=== PATIENT | female | born 1965 | race Two or more races ===

== ENCOUNTER 2022-05-06 00:08 | Emergency (ER) | payer MEDICAID, OTHER ==
[~2022-05-06] VITALS: Ht 170.2 cm; Wt 75.8 kg
[2022-05-06 01:03] LABS: Basophils # (auto) 0.1 10 ^3/uL (0-0.2); Basophils % (auto) 1.1 % (0.0-2.0); Eosinophils # (auto) 0.5 10 ^3/uL (0-0.8); Eosinophils % (auto) 7.7 % (0.0-7.0); Hematocrit 38.7 % (36.0-46.0); Hemoglobin 13.3 g/dL (12.2-16.2); Lymphocytes % (auto) 30.4 % (10.0-50.0); Mean Corpuscular Hemoglobin 31.3 pg (28.0-32.0); Mean Corpuscular Hgb Conc. 34.2 g/dL (32.0-36.0); Mean Corpuscular Volume 91.5 fL (80.0-100.0); Monocytes # (auto) 0.5 10 ^3/uL (0-1.3); Monocytes % (auto) 8.4 % (0.0-12.0); Neutrophils # (auto) 3.4 10 ^3/uL (1.6-8.6); Neutrophils % (auto) 52.4 % (37.0-80.0); Nucleated Red Blood Cells % 0.1 %; Red Blood Cells 4.23 10^6/uL (4.0-5.20); Red Cell Distribution Width 12.9 % (11.8-14.3); White Blood Cell 6.5 10^3/uL (4.4-10.8)
[2022-05-06 01:16] LABS: Albumin 3.5 g/dL (3.4-5.0); BUN/Creatinine Ratio 26.9; Calcium 8.5 mg/dL (8.5-10.1); Magnesium 1.8 mg/dL (1.6-2.6); Potassium 4.3 mmol/L (3.5-5.1)
[2022-05-06 01:18] LABS: Bilirubin, Total 0.4 mg/dL (0.2-1.0)
[2022-05-06 05:19] VITALS: BP 113/70
== END 2022-05-06 05:24 | disposition home or self-care (01) ==
LOC: ER 00:10
DX: I10 Essential (primary) hypertension (principal); E11.649 Type 2 diabetes mellitus with hypoglycemia without coma; E78.5 Hyperlipidemia, unspecified
CPT/HCPCS: 36415; 71046; 80053; 83735; 83880; 84484; 85025; 85379; 93005

== ENCOUNTER 2022-12-01 09:22 | Inpatient (IN) | payer MEDICAID ==
[~2022-12-01] VITALS: Ht 170.2 cm; Wt 77.0 kg
[2022-12-01 09:45] LABS: Basophils # (auto) 0 10 ^3/uL (0-0.2); Basophils % (auto) 0.8 % (0.0-2.0); Eosinophils # (auto) 0.2 10 ^3/uL (0-0.8); Eosinophils % (auto) 4.1 % (0.0-7.0); Hematocrit 40.4 % (36.0-46.0); Hemoglobin 13.5 g/dL (12.2-16.2); Lymphocytes # (auto) 1.4 10 ^3/uL (0.4-5.4); Lymphocytes % (auto) 25.1 % (10.0-50.0); Mean Corpuscular Hgb Conc. 33.5 g/dL (32.0-36.0); Mean Corpuscular Volume 92.6 fL (80.0-100.0); Monocytes # (auto) 0.6 10 ^3/uL (0-1.3); Monocytes % (auto) 9.9 % (0.0-12.0); Neutrophils # (auto) 3.4 10 ^3/uL (1.6-8.6); Neutrophils % (auto) 60.1 % (37.0-80.0); Nucleated Red Blood Cells % 0.1 %; Red Blood Cells 4.37 10^6/uL (4.0-5.20); White Blood Cell 5.7 10^3/uL (4.4-10.8)
[2022-12-01 10:15] LABS: Alanine Aminotransferase 30 U/L (7-40); Albumin 3.9 g/dL (3.2-4.8); Alkaline Phosphatase 88 U/L (46-116); Anion Gap 5 (5-15); Aspartate Aminotransferase 17 U/L (13-40); BUN/Creatinine Ratio 18.7 (10.0-20.0); Bilirubin, Total 0.7 mg/dL (0.2-1.0); Blood Urea Nitrogen 14 mg/dL (9-23); Calcium 9.2 mg/dL (8.7-10.4); Carbon Dioxide 30 mmol/L (20-30); Chloride 105 mmol/L (98-107); Glucose 265 mg/dL (74-106); Potassium 4.2 mmol/L (3.5-5.1); Sodium 140 mmol/L (136-145); Total Protein 6.7 g/dL (5.7-8.2)
[2022-12-01 10:23] LABS: Urine Bacteria NONE SEEN /hpf (None Seen); Urine Blood Negative /uL (Negative); Urine Clarity Clear (Clear); Urine Color Yellow (Yellow); Urine Protein, UAD Negative (Negative); Urine Specific Gravity 1.022 (1.001-1.035); Urine Urobilinogen Normal (Negative); Urine WBC 9 /hpf (0 - 5); Urine pH 6.5 (5.0-8.0)
[2022-12-01] MEDS ORDERED: ASPirin 325 MG TAB PO ONE (11:00)
[2022-12-01] MEDS ORDERED: NITROGLYCERIN 0.4 MG SL TAB SL ONE (11:00)
[2022-12-01] MEDS ORDERED: ONDANSETRON HCL 4 MG/2 ML VIAL IV ONE (11:00)
[2022-12-01] MEDS ORDERED: MORPHINE SULFATE 4 MG/ML SYR/VIAL IV ONE (11:00)
[2022-12-01 11:49] VITALS: PULSE 79; RESP 11; O2SAT 96
[2022-12-01] MEDS ORDERED: NITROGLYCERIN 0.4 MG SL TAB SL PRN (14:30)
[2022-12-01] MEDS ORDERED: DEXTROSE (50%) 50ML SYRG IV PRN (14:30)
[2022-12-01] MEDS ORDERED: MORPHINE SULFATE INJ 2 MG/ml SYRG IV PRN (14:30)
[2022-12-01] MEDS ORDERED: ACETAMINOPHEN 325 MG TAB PO PRN (14:30)
[2022-12-01] MEDS ORDERED: GLIP2.5T9 PO (14:33)
[2022-12-01] MEDS ORDERED: LISI2.5T47 PO (14:33)
[2022-12-01] MEDS ORDERED: SEMA2INJ3 SC (14:33)
[2022-12-01] MEDS ORDERED: GLUC-149 XX (14:33)
[2022-12-01] MEDS: SODIUM CHLORIDE 0.9% 1,000 ML IV SCH (14:50)
[2022-12-01] MEDS ORDERED: cefTRIAXone 1GM/50ML D5W 50 ML IV ONE (15:00)
[2022-12-01 15:05] LABS: Triglycerides 122 mg/dL (< 150)
[2022-12-01 15:06] LABS: LDL Cholesterol 83 mg/dL (< 100)
[2022-12-01 15:07] LABS: HDL Cholesterol 37 mg/dL (40-59)
[2022-12-01 15:08] LABS: Cholesterol 136 mg/dL (< 200)
[2022-12-01] MEDS: InsuLIN REG 1unit/0.01ml Soln (100units/ml) SC SCH ×2 (17:00→22:15)
[2022-12-01] MEDS: ACCU-CHEK COMFORT CURVE STRIP VI SCH ×2 (17:26→22:14)
[2022-12-01 19:44] VITALS: PULSE 80; RESP 15; O2SAT 95
[2022-12-01] MEDS: ATORVASTATIN 20 MG TAB PO SCH (22:14)
[2022-12-02] VITALS (7 sets, daily range): BP systolic 103–117; BP diastolic 59–61; PULSE 69–89; RESP 13–20; TEMP 98.2–98.6; O2SAT 94–100
[2022-12-02 06:30] LABS: Alanine Aminotransferase 28 U/L (7-40); Albumin 3.9 g/dL (3.2-4.8); Alkaline Phosphatase 89 U/L (46-116); Anion Gap 7 (5-15); Aspartate Aminotransferase 19 U/L (13-40); BUN/Creatinine Ratio 12.9 (10.0-20.0); Bilirubin, Total 0.7 mg/dL (0.2-1.0); Blood Urea Nitrogen 9 mg/dL (9-23); Calcium 8.9 mg/dL (8.7-10.4); Carbon Dioxide 25 mmol/L (20-30); Chloride 108 mmol/L (98-107); Glucose 118 mg/dL (74-106); Potassium 4.1 mmol/L (3.5-5.1); Sodium 140 mmol/L (136-145); Total Protein 6.8 g/dL (5.7-8.2)
[2022-12-02 06:35] LABS: Basophils # (auto) 0 10 ^3/uL (0-0.2); Basophils % (auto) 0.8 % (0.0-2.0); Eosinophils # (auto) 0.2 10 ^3/uL (0-0.8); Eosinophils % (auto) 4.5 % (0.0-7.0); Hemoglobin 13.3 g/dL (12.2-16.2); Lymphocytes # (auto) 1.4 10 ^3/uL (0.4-5.4); Lymphocytes % (auto) 30.2 % (10.0-50.0); Mean Corpuscular Hemoglobin 31.2 pg (28.0-32.0); Mean Corpuscular Hgb Conc. 34.1 g/dL (32.0-36.0); Mean Corpuscular Volume 91.7 fL (80.0-100.0); Monocytes # (auto) 0.5 10 ^3/uL (0-1.3); Monocytes % (auto) 10.7 % (0.0-12.0); Neutrophils # (auto) 2.6 10 ^3/uL (1.6-8.6); Neutrophils % (auto) 53.8 % (37.0-80.0); Nucleated Red Blood Cells % 0.1 %; Red Blood Cells 4.25 10^6/uL (4.0-5.20); White Blood Cell 4.8 10^3/uL (4.4-10.8)
[2022-12-02] MEDS: InsuLIN REG 1unit/0.01ml Soln (100units/ml) SC SCH ×4 (06:40→22:00)
[2022-12-02] MEDS: ACCU-CHEK COMFORT CURVE STRIP VI SCH ×4 (06:40→23:06)
[2022-12-02] MEDS: SODIUM CHLORIDE 0.9% 1,000 ML IV SCH (07:13)
[2022-12-02] MEDS: cefTRIAXone 1GM/50ML D5W 50 ML IV SCH (09:40)
[2022-12-02] MEDS: ASPirin 81 mg TAB PO SCH (09:42)
[2022-12-02] MEDS: LISINOPRIL 5 MG TAB PO SCH (09:42)
[2022-12-02] MEDS ORDERED: ENOXAPARIN SOD 40 MG/0.4 ML SYRINGE SC SCH (10:00)
[2022-12-02] MEDS ORDERED: LISI2.5T47 PO (14:51)
[2022-12-02] MEDS ORDERED: SEMA2INJ3 SC (14:51)
[2022-12-02] MEDS ORDERED: GLIP2.5T9 PO (14:51)
[2022-12-02] MEDS: ATORVASTATIN 20 MG TAB PO SCH (23:05)
[2022-12-03] VITALS (7 sets, daily range): BP systolic 101–113; BP diastolic 56–64; PULSE 64–76; RESP 16–18; TEMP 97.9–98.6; O2SAT 94–99
[2022-12-03] MEDS: ACCU-CHEK COMFORT CURVE STRIP VI SCH ×3 (06:58→17:00)
[2022-12-03] MEDS: InsuLIN REG 1unit/0.01ml Soln (100units/ml) SC SCH ×3 (06:58→17:00)
[2022-12-03] MEDS: cefTRIAXone 1GM/50ML D5W 50 ML IV SCH (10:32)
[2022-12-03] MEDS: LISINOPRIL 5 MG TAB PO SCH (10:37)
[2022-12-03] MEDS: ASPirin 81 mg TAB PO SCH (10:38)
[2022-12-03] MEDS ORDERED: CEFU500T43 PO (14:38)
== END 2022-12-03 21:00 | disposition home or self-care (01) | DRG 198 ==
LOC: ER 09:22 → TELE 14:29 → TELE-WESTW 12-02 08:48
PROVIDERS: ADMIT Nurse Practitioner Family; ATTEND Internal Medicine
DX: I25.10 Atherosclerotic heart disease of native coronary artery without angina pectoris (principal); E11.65 Type 2 diabetes mellitus with hyperglycemia; I10 Essential (primary) hypertension; N39.0 Urinary tract infection, site not specified; E66.9 Obesity, unspecified; Z68.26 Body mass index [BMI] 26.0-26.9, adult; E78.5 Hyperlipidemia, unspecified; Z79.899 Other long term (current) drug therapy; R00.2 Palpitations
CPT/HCPCS: 36415; 71045; 78452; 80053; 80061; 81001; 82962; 83036; 84443; 84484; 85025; 87086; 93005; 93017; 93306; G0378; J0696; J1815

== ENCOUNTER 2023-04-11 22:12 | Emergency (ER) | payer MEDICAID ==
[~2023-04-11] VITALS: Ht 167.6 cm; Wt 74.0 kg
[~2023-04-11 22:12] MED LIST: CEFU500T43 PO; GLIP2.5T9 PO; LISI2.5T47 PO; SEMA2INJ3 SC
[2023-04-11 22:51] LABS: Basophils # (auto) 0.1 10 ^3/uL (0-0.2); Basophils % (auto) 1.6 % (0.0-2.0); Eosinophils # (auto) 0.3 10 ^3/uL (0-0.8); Eosinophils % (auto) 4.7 % (0.0-7.0); Hematocrit 41.1 % (36.0-46.0); Hemoglobin 13.5 g/dL (12.2-16.2); Lymphocytes # (auto) 2.4 10 ^3/uL (0.4-5.4); Lymphocytes % (auto) 38.1 % (10.0-50.0); Mean Corpuscular Hemoglobin 30.6 pg (28.0-32.0); Mean Corpuscular Volume 92.7 fL (80.0-100.0); Monocytes # (auto) 0.5 10 ^3/uL (0-1.3); Monocytes % (auto) 8.2 % (0.0-12.0); Neutrophils # (auto) 2.9 10 ^3/uL (1.6-8.6); Neutrophils % (auto) 47.4 % (37.0-80.0); Nucleated Red Blood Cells % 0.1 %; Red Blood Cells 4.43 10^6/uL (4.0-5.20); Red Cell Distribution Width 13.1 % (11.8-14.3); White Blood Cell 6.2 10^3/uL (4.4-10.8)
[2023-04-11 22:55] LABS: Chloride 105 mmol/L (98-107); Potassium 3.8 mmol/L (3.5-5.1); Sodium 138 mmol/L (136-145)
[2023-04-11 22:56] LABS: Anion Gap 6 (5-15); Calcium 9.4 mg/dL (8.5-10.1); Carbon Dioxide 27 mmol/L (20-30)
[2023-04-11 22:58] LABS: Urine Bacteria NONE SEEN /hpf (None Seen); Urine Blood Negative /uL (Negative); Urine Clarity Clear (Clear); Urine Protein, UAD Negative (Negative); Urine Specific Gravity 1.005 (1.001-1.035); Urine Urobilinogen Normal (Negative); Urine WBC <1 /hpf (0 - 5); Urine pH 6.5 (5.0-8.0)
[2023-04-11 23:01] LABS: BUN/Creatinine Ratio 21.8 (10.0-20.0); Blood Urea Nitrogen 17 mg/dL (9-23); Glucose 147 mg/dL (74-106)
[2023-04-11 23:08] LABS: Urine Color STRAW (Yellow)
[2023-04-12 00:01] VITALS: BP 124/54; PULSE 71; RESP 18; O2SAT 100
== END 2023-04-12 00:04 | disposition home or self-care (01) ==
LOC: ER 22:12
DX: R07.89 Other chest pain (principal); I10 Essential (primary) hypertension; E11.9 Type 2 diabetes mellitus without complications; E78.5 Hyperlipidemia, unspecified
CPT/HCPCS: 36415; 80048; 81001; 84484; 85025; 93005

== ENCOUNTER 2023-08-15 01:04 | Emergency (ER) | payer MEDICAID ==
[~2023-08-15] VITALS: Ht 170.2 cm; Wt 76.0 kg
[2023-08-15 01:17] VITALS: BP 157/86; RESP 20; O2SAT 100
[2023-08-15 01:39] LABS: Basophils # (auto) 0.1 10 ^3/uL (0-0.2); Eosinophils # (auto) 0.5 10 ^3/uL (0-0.8); Eosinophils % (auto) 7.4 % (0.0-7.0); Hematocrit 38.8 % (36.0-46.0); Hemoglobin 12.9 g/dL (12.2-16.2); Lymphocytes # (auto) 2.9 10 ^3/uL (0.4-5.4); Lymphocytes % (auto) 43.8 % (10.0-50.0); Mean Corpuscular Hemoglobin 31.1 pg (28.0-32.0); Mean Corpuscular Hgb Conc. 33.2 g/dL (32.0-36.0); Mean Corpuscular Volume 93.6 fL (80.0-100.0); Monocytes # (auto) 0.7 10 ^3/uL (0-1.3); Monocytes % (auto) 10.9 % (0.0-12.0); Neutrophils # (auto) 2.4 10 ^3/uL (1.6-8.6); Neutrophils % (auto) 36.9 % (37.0-80.0); Nucleated Red Blood Cells % 0.1 %; Red Blood Cells 4.15 10^6/uL (4.0-5.20); White Blood Cell 6.6 10^3/uL (4.4-10.8)
[2023-08-15 01:49] LABS: Urine Bacteria None Seen /hpf (None Seen)
[2023-08-15 01:58] LABS: Urine Blood Negative /uL (Negative); Urine Clarity Clear (Clear); Urine Protein, UAD Negative (Negative); Urine Specific Gravity 1.004 (1.001-1.035); Urine Urobilinogen Normal (Negative); Urine WBC <1 /hpf (0 - 5); Urine pH 6.5 (5.0-9.0)
[2023-08-15 02:07] LABS: Alanine Aminotransferase 32 U/L (7-40); Albumin 4.2 g/dL (3.2-4.8); Alkaline Phosphatase 93 U/L (46-116); Anion Gap 7 (5-15); Aspartate Aminotransferase 19 U/L (13-40); BUN/Creatinine Ratio 15.2 (10.0-20.0); Bilirubin, Total 0.4 mg/dL (0.2-1.0); Blood Urea Nitrogen 10 mg/dL (9-23); Calcium 9.6 mg/dL (8.7-10.4); Carbon Dioxide 26 mmol/L (20-30); Chloride 106 mmol/L (98-107); Glucose 160 mg/dL (74-106); Potassium 4.6 mmol/L (3.5-5.1); Sodium 139 mmol/L (136-145); Total Protein 7.3 g/dL (5.7-8.2)
[2023-08-15 02:32] VITALS: PULSE 75
[2023-08-15 02:45] LABS: Urine Color Straw (Yellow)
== END 2023-08-15 04:02 | disposition left against medical advice (07) ==
LOC: ER 01:04
DX: R07.9 Chest pain, unspecified (principal); E11.9 Type 2 diabetes mellitus without complications; E78.5 Hyperlipidemia, unspecified; I10 Essential (primary) hypertension
CPT/HCPCS: 36415; 70450; 71045; 80053; 81001; 84484; 85025; 93005

== ENCOUNTER 2023-09-29 23:07 | Emergency (ER) | payer MEDICAID ==
[~2023-09-29] VITALS: Ht 170.2 cm; Wt 75.5 kg
[2023-09-29 23:17] VITALS: BP 143/67
[2023-09-29 23:36] LABS: Basophils # (auto) 0.1 10 ^3/uL (0-0.2); Basophils % (auto) 0.9 % (0.0-2.0); Eosinophils # (auto) 0.4 10 ^3/uL (0-0.8); Eosinophils % (auto) 5.4 % (0.0-7.0); Hematocrit 36.7 % (36.0-46.0); Hemoglobin 12.6 g/dL (12.2-16.2); Lymphocytes # (auto) 2.9 10 ^3/uL (0.4-5.4); Lymphocytes % (auto) 42.3 % (10.0-50.0); Mean Corpuscular Hemoglobin 31.7 pg (28.0-32.0); Mean Corpuscular Hgb Conc. 34.2 g/dL (32.0-36.0); Mean Corpuscular Volume 92.7 fL (80.0-100.0); Monocytes # (auto) 0.6 10 ^3/uL (0-1.3); Monocytes % (auto) 9.1 % (0.0-12.0); Neutrophils # (auto) 2.9 10 ^3/uL (1.6-8.6); Neutrophils % (auto) 42.3 % (37.0-80.0); Nucleated Red Blood Cells % 0.1 %; Red Blood Cells 3.96 10^6/uL (4.0-5.20); White Blood Cell 6.8 10^3/uL (4.4-10.8)
[2023-09-29 23:54] LABS: Alanine Aminotransferase 22 U/L (7-40); Alkaline Phosphatase 91 U/L (46-116); Anion Gap 2 (5-15); Aspartate Aminotransferase 15 U/L (13-40); BUN/Creatinine Ratio 15.4 (10.0-20.0); Bilirubin, Total 0.7 mg/dL (0.2-1.0); Blood Urea Nitrogen 10 mg/dL (9-23); Calcium 9.4 mg/dL (8.7-10.4); Carbon Dioxide 30 mmol/L (20-30); Chloride 103 mmol/L (98-107); Glucose 137 mg/dL (74-106); Magnesium 1.9 mg/dL (1.6-2.6); Potassium 4.5 mmol/L (3.5-5.1); Sodium 135 mmol/L (136-145)
[2023-09-29 23:55] LABS: INR 1.06 (0.9-1.15); Partial Thromboplastin Time 27.9 SEC (24.5-34.5); Prothrombin Time 11.2 sec (9.3-11.8)
[2023-09-30 03:51] VITALS: PULSE 64; RESP 14; TEMP 98.2; O2SAT 98
[2023-09-30] MEDS ORDERED: IOHEXOL 350 MG/ML 100ML IJ ONE (05:05)
[2023-09-30] MEDS ORDERED: HYDR-4902 PO (05:36)
[2023-09-30] MEDS: ASPirin-EC 325mg tab PO ONE (05:50)
== END 2023-09-30 05:55 | disposition home or self-care (01) ==
LOC: ER 23:07
DX: R07.2 Precordial pain (principal); K80.20 Calculus of gallbladder without cholecystitis without obstruction; E11.9 Type 2 diabetes mellitus without complications; E78.5 Hyperlipidemia, unspecified; I10 Essential (primary) hypertension; F41.9 Anxiety disorder, unspecified
CPT/HCPCS: 36415; 71045; 71275; 80053; 83735; 83880; 84484; 85025; 85610; 85730; 93005; 99285; Q9967; 99291

== ENCOUNTER 2024-09-24 01:41 | Inpatient (IN) | payer MEDICAID ==
[~2024-09-24] VITALS: Ht 170.2 cm; Wt 66.0 kg
[~2024-09-24 01:41] MED LIST changes: +HYDR-4902 PO
--- NOTE | 2024-09-24 02:12 | ED.PDOC ---
HPI Comments 59 year old female with a Hx of Anxiety, HTN, DM, and High Lipids presents to the ED for the c/c of Elevated Blood pressure w/ associated Chest pressure, SOB, Dizziness, and N/V. Pt states that she took an at home blood pressure and it read 195/95 prompting her visit to the ED. Pt BP is noted to have improved to 147/85 upon triage assessment. Pt denies any ABD Pain, Radiation, and is A&Ox4. No other associated symptoms, modifiers, recent injuries or sick contacts present at this time. Time Seen by MD: 02:07 Primary Care Provider: Unknown Reviewed Notes: Nurses Notes, Medications, Allergies Allergies: Coded Allergies: No Known Drug Allergy (Verified Allergy, Unknown, 12/01/22) Home Meds Active Scripts Hydrocodone-Acetaminophen (Hydrocodone Bitartrate/AC 5-325 mg) 1 Tab Tab, 1 TAB PO QIDPRN, #20 TAB Prov:AD ARROYO MD 09/30/23 Cefuroxime Axetil (Cefuroxime Axetil) 500 Mg Tab, 500 MG PO BID PRN for 5 Days, #10 TAB Prov:CHRISTOPH TOBIAS MD 12/03/22 Reported Medications Semaglutide (Ozempic) 2 Mg/3 Ml Inj, 0.25 MG SC QWEEKLY, INJ 12/02/22 Lisinopril (Lisinopril) 2.5 Mg Tab, 2.5 MG PO DAILY for 30 Days, MG 12/02/22 Glipizide (Glipizide Er) 2.5 Mg Tab, 2.5 MG PO BID, TAB 12/02/22 Information Source: Patient Mode of Arrival: Ambulatory Severity: Moderate Timing: Hours Duration: Since onset, Hours Prehospital treatment: None Location: Chest (L) Radiation: No Radiation Quality: Pressure Onset: At Rest Cardiac Risk Factors: HTN, Diabetes PE Risk Factors: None History of: None Modifying Factors: Exertion, Movement Associated Signs and Symptoms: SOB, N/V Past Medical History PAST MEDICAL HISTORY: Anxiety, DM, High Lipids, HTN Surgical History: Denies all surgeries GREEN HIDE INSPECTOR History: Denies all GREEN HIDE INSPECTOR Hx Family History Family History: Unknown Social History Smoker: Non-Smoker Alcohol: Denies ETOH Use Drugs: Denies Drug Use Lives In: Home All Other Systems: Reviewed and Negative (comprehensive exam was negavtive accept what is in the HPI) Physical Exam General Appearance: Mild Distress, Obese HEENT: Other (Pupils and face symmetric. Moist mucous membranes.) Neck: Full Range of Motion, Normal Inspection Respiratory: Chest Non-Tender, Lungs Clear, No Accessory Muscle Use, No Respiratory Distress, Normal Breath Sounds Cardiovascular: No Edema, No JVD, Regular Rate/Rhythm Breast Exam: Deferred Gastrointestinal: Non Tender, Soft Genitalia: Deferred Pelvic: Deferred Rectal: Deferred Extremities: Normal inspection, Normal range of motion, Non-tender, No pedal edema Neurologic: Alert (Oriented x4), Normal Affect, Normal Mood, Other (Ambulatory) Cerebellar Function: NOT DONE Reflexes: NOT DONE Skin: Dry, Normal Color, Warm Lymphatic: NOT DONE EKG EKG : Comments Sinus rhythm, rate 74, normal intervals, normal axis, normal QRS, no ST/T ch anges. Was a procedure done? Was a procedure done?: No CP Differential Dx Differential Diagnosis: Angina, Anxiety / Panic Attack, Electrolyte Disorder, Heart Failure, AL, Pulmonary Embolus Differential Diagnosis: HTN Essential, HTN Accelerated Differential Diagnosis: Angina, Aortic dissection, Chest Wall Pain, Costochondritis, Esophageal reflux/spasm, Gastritis, Pericarditis, Pneumonia, Pneumothorax X-Ray, Labs, Meds, VS Vital Signs Date Time Temp Pulse Resp B/P (MAP) Pulse Ox O2 Delivery O2 Flow Rate FiO2 09/24/24 02:05 74 09/24/24 02:00 98.2 86 16 147/85 (105) 100 98.2 Lab Test 09/24/24 02:58 09/24/24 02:10 09/24/24 02:00 Range/Units Troponin I High Sensitivity Pending < 3 L </=34 ng/L White Blood Count 5.4 4.4-10.8 10^3/uL Red Blood Count 4.37 4.0-5.20 10^6/uL Hemoglobin 13.5 12.2-16.2 g/dL Hematocrit 40.5 36.0-46.0 % Mean Corpuscular Volume 92.7 80.0-100.0 fL Mean Corpuscular Hemoglobin 30.9 28.0-32.0 pg Mean Corpuscular Hemoglobin Concent 33.4 32.0-36.0 g/dL Red Cell Distribution Width 12.8 11.8-14.3 % Platelet Count 229 140-450 10^3/uL Mean Platelet Volume 7.9 6.9-10.8 fL Neutrophils (%) (Auto) 36.4 L 37.0-80.0 % Lymphocytes (%) (Auto) 46.8 10.0-50.0 % Monocytes (%) (Auto) 10.0 0.0-12.0 % Eosinophils (%) (Auto) 5.9 0.0-7.0 % Basophils (%) (Auto) 0.9 0.0-2.0 % Neutrophils # (Auto) 1.9 1.6-8.6 10 ^3/uL Lymphocytes # (Auto) 2.5 0.4-5.4 10 ^3/uL Monocytes # (Auto) 0.5 0-1.3 10 ^3/uL Eosinophils # (Auto) 0.3 0-0.8 10 ^3/uL Basophils # (Auto) 0 0-0.2 10 ^3/uL Nucleated Red Blood Cells 0.1 % Sodium Level 134 L 136-145 mmol/L Potassium Level 4.4 3.5-5.1 mmol/L Chloride Level 101 98-107 mmol/L Carbon Dioxide Level 27 20-31 mmol/L Anion Gap 6 5-15 Blood Urea Nitrogen 9 9-23 mg/dL Creatinine 0.73 0.550-1.02 mg/dL Glomerular Filtration Rate Calc 96 >90 mL/min BUN/Creatinine Ratio 12.3 10.0-20.0 Serum Glucose 145 H 74-106 mg/dL Calcium Level 9.3 8.7-10.4 mg/dL B-Type Natriuretic Peptide 38.26 0-100 pg/mL Urine Color Colorless Yellow Urine Clarity Clear Clear Urine pH 6.5 5.0-9.0 Urine Specific [place] 1.008 1.001-1.035 Urine Protein Negative Negative Urine Ketones Negative Negative Urine Blood Negative Negative /uL Urine Nitrite Negative Negative Urine Bilirubin Negative Negative Urine Urobilinogen Normal Negative mg/dL Urine Leukocyte Esterase Negative Negative /uL Urine RBC None seen 0 - 4 /hpf Urine Microscopic WBC < 1 0-5 /HPF Urine Squamous Epithelial Cells Few <5 /hpf Urine Bacteria None seen None Seen /hpf Urine Glucose Normal Normal mg/dL PROCEDURE(s): CXRP - CHEST PORTABLE REASON: cp ORDER NUMBER(s): [id number], ACCESSION NUMBER(s): [id number] CHEST RADIOGRAPH Indication: cp Technique: Single frontal view of the chest was obtained COMPARISON: XY CHEST PORTABLE on DOS: 09/29/23, XY CHEST PORTABLE on DOS: 08/15/23, XY CHEST PORTABLE on DOS: 12/01/22 FINDINGS: Lines and Tubes: None Lungs: Clear Pleura: No effusion. No pneumothorax. Cardiomediastinal contours: Unremarkable Bones: Unremarkable IMPRESSION: 1. No acute disease. X-Ray, Labs, Meds, VS Comment 59-year-old female with a history of hypertension, diabetes and dyslipidemia complaining of chest pressure, elevated blood pressure, associated with lightheadedness, nausea and vomiting Vitals remarkable for BP 147/85 Exam unremarkable Rhythm strip independently interpreted by me: Sinus rhythm, rate 74, no ectopy. Chest x-ray unremarkable CBC unremarkable, BMP remarkable for sodium 134, BNP and troponin negative, UA unremarkable Patient treated with the following in the ED: Aspirin 325 mg p.o., nitro bid 1/2 inch to chest wall On re-evaluation, patient states chest pressure has improved. Vitals were stable. Plan is to admit the patient for Cardiology evaluation Time of 1ST Reevaluation: 02:38 Reevaluation 1ST: Unchanged Patient Education/Counseling: Diagnosis, Treatment, Need For Follow Up Family Education/Counseling: No Family Present SEPSIS Sepsis Screen Physician Orders Chest Portable (09/24/24 02:07) Electrocardigram (09/24/24 02:07) Troponin-I Hs (09/24/24 03:07) Troponin-I Hs (09/24/24 05:07) Vital Signs Date Time Temp Pulse Resp B/P (MAP) Pulse Ox O2 Delivery O2 Flow Rate FiO2 09/24/24 02:05 74 09/24/24 02:00 98.2 86 16 147/85 (105) 100 98.2 Laboratory Tests Test 09/24/24 02:10 White Blood Count 5.4 10^3/uL (4.4-10.8) Departure 1 Departure Time of Disposition: 04:01 Impression: Primary Impression: Hypertensive urgency Additional Impression: Chest pain with high risk for cardiac etiology Disposition: ADMITTED INPATIENT Admit to: Tele Condition: Guarded Critical Care Note Critical Care Time?: No Stability Stability form required: No Heart Score Heart Score: Heart Score Response (Comments) Value History Highly Suspicious 2 EKG Normal 0 Age 45-64 1 Risk Factors >3 or Hx ASHD 2 Troponin Normal limit 0 Total 5 I personally scribed for ADRIAN MASCORRO MD ([email or web address]) on 09/24/24 at 02:12. Electronically submitted by Ferny Ramires ([email or web address]). ADRIAN MASCORRO MD Sep 24, 2024 02:12
[2024-09-24 02:23] LABS: Hematocrit 40.5 % (36.0-46.0); Hemoglobin 13.5 g/dL (12.2-16.2); Mean Corpuscular Hemoglobin 30.9 pg (28.0-32.0); Mean Corpuscular Volume 92.7 fL (80.0-100.0); Nucleated Red Blood Cells % 0.1 %
[2024-09-24 02:31] LABS: Chloride 101 mmol/L (98-107); Potassium 4.4 mmol/L (3.5-5.1)
[2024-09-24 02:32] LABS: Anion Gap 6 (5-15); Calcium 9.3 mg/dL (8.7-10.4); Carbon Dioxide 27 mmol/L (20-31)
[2024-09-24 02:37] LABS: BUN/Creatinine Ratio 12.3 (10.0-20.0)
--- NOTE | 2024-09-24 02:58 | DVH ---
CHEST RADIOGRAPH Indication: cp Technique: Single frontal view of the chest was obtained COMPARISON: XY CHEST PORTABLE on DOS: 09/29/23, XY CHEST PORTABLE on DOS: 08/15/23, XY CHEST PORTABLE on DOS: 12/01/22 FINDINGS: Lines and Tubes: None Lungs: Clear Pleura: No effusion. No pneumothorax. Cardiomediastinal contours: Unremarkable Bones: Unremarkable IMPRESSION: 1. No acute disease.
[2024-09-24 03:12] LABS: Blood Urea Nitrogen 9 mg/dL (9-23); Glucose 145 mg/dL (74-106); Sodium 134 mmol/L (136-145)
[2024-09-24 03:16] LABS: Urine Protein, UAD Negative (Negative)
[2024-09-24] MEDS: ACETAMINOPHEN 500 MG TAB or CAP PO ONE (04:13)
[2024-09-24] MEDS: NITROGLYCERIN 2% OINT 1GM PKG TD ONE (04:23)
[2024-09-24 06:45] VITALS: PULSE 65; RESP 16; O2SAT 99
[2024-09-24] MEDS ORDERED: MORPHINE SULFATE INJ 2 MG/ml SYRG IV PRN (07:15)
[2024-09-24] MEDS ORDERED: NITROGLYCERIN 0.4 MG SL TAB SL PRN ×2 (07:15)
[2024-09-24] MEDS ORDERED: ONDANSETRON HCL 4 MG/2 ML VIAL IV PRN (07:15)
[2024-09-24] MEDS ORDERED: MORPHINE SULFATE 4 MG/ML SYR/VIAL IV PRN (07:15)
[2024-09-24] MEDS ORDERED: ROSU20TA56 PO (07:18)
--- NOTE | 2024-09-24 07:18 | DVHHP2 ---
History of Present Illness Reason for Visit: Chest pain History of Present Illness Meyerskaylyn ReevesAVERY is a 59-year-old female with past medical history of hypertension, diabetes, hyperlipidemia, and anxiety who presents to the ED with chest pain that started today along with high blood pressure. Patient reports that the pain is 3/10 pressure-like and constant. She also states it is worse when breathing in. Patient reports that standing up makes the pain better. She states that sitting down makes it worse. Patient denies any shortness of breath, recent trauma or injury, recent sick contacts, recent ingestion of spoiled food, recent travels, abdominal pain, nausea, vomiting, diarrhea, urinary symptoms, lightheadedness, weakness, or dizziness. Patient reports that she is compliant with her medications and walks ind ependently without any DMEs. Cardiovascular: HTN, hyperipidemia Psych: Anxiety Endocrine: Diabetes Past Surgical History: None Family History: DM, Other (Mom and dad with diabetes) Smoke: No ALCOHOL: none Drugs: None Lives: with Family Domestic Violence: Neg Review of Systems Cardiovascular: Chest Pain Allergies: Coded Allergies: No Known Drug Allergy (Verified Allergy, Unknown, 12/01/22) Medications Current Medications Medications Dose Ordered Sig/Lilian Route Start Time Stop Time Status Last Admin Dose Admin Aspirin 81 mg DAILY PO 09/24/24 10:00 UNV Atorvastatin Calcium 40 mg HS PO 09/24/24 22:00 UNV Morphine Sulfate 2 mg Q30MP PRN IV 09/24/24 07:15 UNV Nitroglycerin 0.4 mg Q5MINP PRN SL 09/24/24 07:15 UNV Ondansetron HCl 4 mg Q4HP PRN IV 09/24/24 07:15 UNV Nitroglycerin 0.4 mg Q5MINP PRN SL 09/24/24 07:15 UNV Morphine Sulfate 2 mg Q30M PRN IV 09/24/24 07:15 UNV Exam Vital Signs Vital Signs Date Time Temp Pulse Resp B/P (MAP) Pulse Ox O2 Delivery O2 Flow Rate FiO2 09/24/24 06:45 65 16 99 Room Air* 0 21 09/24/24 06:30 98.4 133/68 (89) 98.4 General Appearance: Alert, Oriented X3, Cooperative, No acute distress HEENT: Atraumatic, PERRLA, EOMI, Mucous membr. moist/pink Respiratory: Clear to auscultation, Normal air movement Cardiovascular: Regular rate, Normal S1, Normal S2, No murmurs Abdominal: Normal bowel sounds, Soft Extremities: No clubbing, No cyanosis, No edema, Normal pulses, No tenderness/swelling Skin: No significant lesion Neuro: Normal speech, Strength at 5/5 X4 ext, Normal tone, Sensation intact Psych/Mental Status: Mental status NL, Mood NL Labs/Xrays Labs Test 09/24/24 05:27 09/24/24 02:10 09/24/24 02:00 Range/Units Troponin I High Sensitivity < 3 L </=34 ng/L White Blood Count 5.4 4.4-10.8 10^3/uL Red Blood Count 4.37 4.0-5.20 10^6/uL Hemoglobin 13.5 12.2-16.2 g/dL Hematocrit 40.5 36.0-46.0 % Mean Corpuscular Volume 92.7 80.0-100.0 fL Mean Corpuscular Hemoglobin 30.9 28.0-32.0 pg Mean Corpuscular Hemoglobin Concent 33.4 32.0-36.0 g/dL Red Cell Distribution Width 12.8 11.8-14.3 % Platelet Count 229 140-450 10^3/uL Mean Platelet Volume 7.9 6.9-10.8 fL Neutrophils (%) (Auto) 36.4 L 37.0-80.0 % Lymphocytes (%) (Auto) 46.8 10.0-50.0 % Monocytes (%) (Auto) 10.0 0.0-12.0 % Eosinophils (%) (Auto) 5.9 0.0-7.0 % Basophils (%) (Auto) 0.9 0.0-2.0 % Neutrophils # (Auto) 1.9 1.6-8.6 10 ^3/uL Lymphocytes # (Auto) 2.5 0.4-5.4 10 ^3/uL Monocytes # (Auto) 0.5 0-1.3 10 ^3/uL Eosinophils # (Auto) 0.3 0-0.8 10 ^3/uL Basophils # (Auto) 0 0-0.2 10 ^3/uL Nucleated Red Blood Cells 0.1 % Sodium Level 134 L 136-145 mmol/L Potassium Level 4.4 3.5-5.1 mmol/L Chloride Level 101 98-107 mmol/L Carbon Dioxide Level 27 20-31 mmol/L Anion Gap 6 5-15 Blood Urea Nitrogen 9 9-23 mg/dL Creatinine 0.73 0.550-1.02 mg/dL Glomerular Filtration Rate Calc 96 >90 mL/min BUN/Creatinine Ratio 12.3 10.0-20.0 Serum Glucose 145 H 74-106 mg/dL Calcium Level 9.3 8.7-10.4 mg/dL B-Type Natriuretic Peptide 38.26 0-100 pg/mL Urine Color Colorless Yellow Urine Clarity Clear Clear Urine pH 6.5 5.0-9.0 Urine Specific [place] 1.008 1.001-1.035 Urine Protein Negative Negative Urine Ketones Negative Negative Urine Blood Negative Negative /uL Urine Nitrite Negative Negative Urine Bilirubin Negative Negative Urine Urobilinogen Normal Negative mg/dL Urine Leukocyte Esterase Negative Negative /uL Urine RBC None seen 0 - 4 /hpf Urine Microscopic WBC < 1 0-5 /HPF Urine Squamous Epithelial Cells Few <5 /hpf Urine Bacteria None seen None Seen /hpf Urine Glucose Normal Normal mg/dL CHEST RADIOGRAPH Indication: cp Technique: Single frontal view of the chest was obtained COMPARISON: XY CHEST PORTABLE on DOS: 09/29/23, XY CHEST PORTABLE on DOS: 08/15/23, XY CHEST PORTABLE on DOS: 12/01/22 FINDINGS: Lines and Tubes: None Lungs: Clear Pleura: No effusion. No pneumothorax. Cardiomediastinal contours: Unremarkable Bones: Unremarkable IMPRESSION: 1. No acute disease. SEPSIS Sepsis Screen Date sepsis recognized/suspect: Sep 24, 2024 Time Sepsis recognized/suspect: 647 Recent Procedure: No On Antibiotic Therapy: No Respiratory Rate >20: No Heart Rate >90: No Temp<36 C (96.8 F) or >38.3 C: No SBP <90 or MAP <65 mmHG: No New Acute Mental Status Change: No Is the patient on CPAP, BIPAP,: No Physician Orders Chest Portable (09/24/24 02:07) Electrocardigram (09/24/24 02:07) Admit (09/24/24 07:14) Code Status (09/24/24 07:14) Vital Signs .PER UNIT PROTOCOL (09/24/24 07:14) Economic Specialist (09/24/24 07:14) Aspirin Tablet (09/24/24 10:00) Morphine Sulfate Injection (09/24/24 07:15) Complete Blood Count (09/25/24 04:00) Basic Metabolic Panel (09/25/24 04:00) Magnesium (09/25/24 04:00) Lipid Panel (09/25/24 04:00) Echo 2d Mode Cardiac Dop (09/24/24 07:14) Nitroglycerin Sublingual (Ntrostat Subli (09/24/24 07:15) Ondansetron Hcl (Zofran) (09/24/24 07:15) Electrocardigram (09/25/24 04:00) Troponin-I Hs (09/24/24 07:14) Cardiac Rehabilitation - Outpa (09/24/24 ) Nitroglycerin Sublingual (Ntrostat Subli (09/24/24 07:15) Morphine Sulfate Injection (09/24/24 07:15) Stat Ekg For Chest Pain (09/24/24 07:14) Notify Md Of Changes From Base (09/24/24 07:14) Cephalometric Technician For 24 Hours (09/24/24 07:14) Emergency Dysrhythmia Protocol (09/24/24 07:14) Rhythm Strips Once Every Shift (09/24/24 07:14) Oxygen By Nasal Cannula (09/24/24 07:14) Atorvastatin (Lipitor) (09/24/24 22:00) Free T4 (Free Thyroxine) (09/24/24 07:16) Thyroid Stimulating Hormone (09/24/24 07:16) Hemoglobin A1c (09/24/24 07:16) Drug Screen (09/24/24 07:16) Cardiac Diet-2gna,Lofat,Lochol (09/24/24 Breakfast) Glucose Blood (Accu-Chek Comfort Curve T (09/24/24 11:30) Mild Sliding Scale (09/24/24 11:30) Dextrose 50% Syringe (09/24/24 07:30) (Nf) Lisinopril (09/24/24 10:00) Vital Signs Date Time Temp Pulse Resp B/P (MAP) Pulse Ox O2 Delivery O2 Flow Rate FiO2 09/24/24 06:45 65 16 99 Room Air* 0 21 09/24/24 06:30 98.4 65 16 133/68 (89) 99 98.4 09/24/24 04:30 98.4 65 16 140/79 (99) 99 98.4 09/24/24 02:05 74 09/24/24 02:00 98.2 86 16 147/85 (105) 100 98.2 Laboratory Tests Test 09/24/24 02:10 White Blood Count 5.4 10^3/uL (4.4-10.8) Medications Medications Dose Ordered Sig/Lilian Route Start Time Stop Time Status Last Admin Dose Admin Acetaminophen 1,000 mg ONCE ONCE PO 09/24/24 04:15 09/24/24 04:16 DC 09/24/24 04:13 1,000 MG Aspirin 325 mg ONCE ONCE PO 09/24/24 02:15 09/24/24 02:16 DC 09/24/24 04:05 325 MG Assessment/Plan Assessment/Plan Assessment Chest pain rule out ACS Hyponatremia Hypertension History of diabetes History of hyperlipidemia History of anxiety Plan Admit to tele Antiemetics Pain management Chest x-ray noted BNP noted Aspirin + statin Hemoglobin A1c ISS and Accu-Cheks Echo ordered Last echo on 12/01/2022 EF 60% ACS workup Diet Home medications reconciled DVT prophylaxis-not indicated patient ambulating PUD prophylaxis-not indicated no history of GERD or GI bleed Discussed plan of care with patient and nurse [id number] Preventive counseling healthy eating habits, physical activity, and regular checkups Plan discussed with: Patient My Orders Orders - PAULETTE JOY LINING CASER Procedure Category Date Status Time Admit ADMIT 09/24/24 Transmitted 07:14 Code Status CODE 09/24/24 Transmitted 07:14 Vital Signs CHANDA 09/24/24 In Process 07:14 Economic Specialist CHANDA 09/24/24 In Process 07:14 Aspirin Tablet PHA 09/24/24 Logged 10:00 Morphine Sulfate PHA 09/24/24 Logged Injection 07:15 Complete Blood Count LAB 09/25/24 Verified 04:00 Basic Metabolic Panel LAB 09/25/24 Verified 04:00 Magnesium LAB 09/25/24 Verified 04:00 Lipid Panel LAB 09/25/24 Verified 04:00 Echo 2d Mode Cardiac US 09/24/24 Logged DOP 07:14 Nitroglycerin PHA 09/24/24 Logged Sublingual (Ntrostat 07:15 Ondansetron Hcl PHA 09/24/24 Logged (Zofran) 07:15 Electrocardigram EKG 09/25/24 Logged 04:00 Troponin-I Hs LAB 09/24/24 Logged 07:14 Cardiac CHANDA 09/24/24 In Process Rehabilitation - Outpa Nitroglycerin PHA 09/24/24 Logged Sublingual (Ntrostat 07:15 Morphine Sulfate PHA 09/24/24 Logged Injection 07:15 Stat Ekg For Chest CHANDA 09/24/24 In Process Pain 07:14 Notify Of Changes [facility] 09/24/24 In Process From Base 07:14 Cephalometric Technician For CHANDA 09/24/24 In Process 24 Hours 07:14 Emergency Dysrhythmia [facility] 09/24/24 In Process Protocol 07:14 Rhythm Strips Once CHANDA 09/24/24 In Process Every Shift 07:14 Oxygen By Nasal RT 09/24/24 Transmitted Cannula 07:14 Atorvastatin (Lipitor) PHA 09/24/24 Logged 22:00 Free T4 (Free LAB 09/24/24 Transmitted Thyroxine) 07:16 Thyroid Stimulating LAB 09/24/24 Transmitted Hormone 07:16 Hemoglobin A1c LAB 09/24/24 Transmitted 07:16 Drug Screen LAB 09/24/24 Transmitted 07:16 Cardiac DIET 09/24/24 Transmitted Diet-2gna,Lofat,Lochol Breakfast Glucose Blood PHA 09/24/24 Transmitted (Accu-Chek Comfort 11:30 Mild Sliding Scale PHA 09/24/24 Transmitted 11:30 Dextrose 50% Syringe PHA 09/24/24 Transmitted 07:30 (Nf) Lisinopril PHA 09/24/24 Transmitted 10:00 Date of Service: Sep 24, 2024 Billing Provider: PAULETTE JOY Common Visit Codes: [id number] INP/OBS CARE (HIGH) Secondary Visit Codes: [id number] COUNSELING IND PAULETTE JOY Sep 24, 2024 07:18
[2024-09-24 07:30] VITALS: PULSE 69; RESP 13; O2SAT 95
[2024-09-24] MEDS ORDERED: DEXTROSE (50%) 50ML SYRG IV PRN (07:30)
[2024-09-24] MEDS ORDERED: PATIENTS OWN MEDICATION (Lisinopril 2.5 MG) PO SCH (10:00)
[2024-09-24] MEDS: LISINOPRIL 5 MG TAB PO SCH (10:00)
[2024-09-24] MEDS: InsuLIN REG 1unit/0.01ml Soln (100units/ml) SC SCH (11:30)
[2024-09-24] MEDS: ACCU-CHEK COMFORT CURVE STRIP VI SCH (11:30)
[2024-09-24] MEDS ORDERED: BACLOFEN 10 MG TAB PO PRN (12:00)
[2024-09-24 15:39] VITALS: PULSE 55; RESP 16; O2SAT 99
[2024-09-24 18:30] VITALS: BP 136/83; PULSE 55; RESP 16; TEMP 97.6; O2SAT 99
[2024-09-24 20:00] VITALS: PULSE 58; PULSE 60; RESP 18; O2SAT 99
[2024-09-24 20:58] VITALS: BP 130/79; PULSE 58; RESP 18; TEMP 98; O2SAT 99
[2024-09-24] MEDS: ATORVASTATIN 20 MG TAB PO SCH (22:02)
[2024-09-25] VITALS (7 sets, daily range): BP systolic 106–133; BP diastolic 57–80; PULSE 53–91; RESP 16–18; TEMP 97.3–98.2; O2SAT 97–100
[2024-09-25 06:03] LABS: Hematocrit 39.0 % (36.0-46.0); Hemoglobin 13.2 g/dL (12.2-16.2); Mean Corpuscular Hemoglobin 31.0 pg (28.0-32.0); Mean Corpuscular Volume 91.6 fL (80.0-100.0); Nucleated Red Blood Cells % 0.2 %
[2024-09-25 06:11] LABS: Anion Gap 4 (5-15); Carbon Dioxide 29 mmol/L (20-31); Chloride 104 mmol/L (98-107); Potassium 4.8 mmol/L (3.5-5.1); Sodium 137 mmol/L (136-145)
[2024-09-25 06:12] LABS: Calcium 9.8 mg/dL (8.7-10.4)
[2024-09-25 06:17] LABS: BUN/Creatinine Ratio 17.6 (10.0-20.0); Blood Urea Nitrogen 12 mg/dL (9-23); Glucose 119 mg/dL (74-106); Magnesium 1.9 mg/dL (1.6-2.6); Triglycerides 118 mg/dL (< 150)
[2024-09-25 06:19] LABS: Cholesterol 170 mg/dL (< 200)
[2024-09-25 06:33] LABS: HDL Cholesterol 39 mg/dL (40-59)
--- NOTE | 2024-09-26 03:18 | DVHSR ---
APPROVED REPORT EXAM: Two-dimensional and M-mode echocardiogram with Doppler and color Doppler. Blood Pressure: 111/65 mmHg INDICATION Chest Pain RISK FACTORS Height: 5'7, Weight: 145 DIMENSIONS LVDd4.1 (3.8-5.7cm)LA (2D)3.7 (1.9-4.0cm)Aortic Root2.8 (2.0-3.7cm) LVDs2.8 (2.5-4.0cm)LA (MM) (1.9-4.0cm)Aortic Cusp Exc1.6 (1.5-2.0cm) EF (%) 60.0 (55-70%)Rt. Atrium2.4 (1.9-4.0cm)Asc. Aorta cm IVSd0.7 (0.7-1.1cm)RV (D)3.1 (1.8-2.4cm) PWd0.8 (0.7-1.1cm) Mitral Valve MitralMitral Stenosis E wave0.92m/sMV Mean GR.mmHg A wave0.88m/sMV Peak GR.56mmHg E/A ratio1.02D MVAcm2 DECEL [id number] 1/2 Tim[place] Aortic Valve Aortic ValveAortic Stenosis V11.06m/[place] Mean GR.4mmHg V21.34m/[place] Peak GR.7mmHg LVOT Diameter1.9 (1.8-2.4cm)Doppler AVA2.24cm2 Pulmonic Valve V20.89m/s Tricuspid Valve TR Velocity2.01m/s [id number] Conclusion LV EF IS 65% NORMAL VALVES NORMAL RV FUNCTION NO EFFUSION
[2024-09-26 04:46] VITALS: BP 115/64; PULSE 54; RESP 18; TEMP 98.1; O2SAT 99
[2024-09-26 08:00] VITALS: PULSE 62
[2024-09-26 09:00] VITALS: BP 112/76; PULSE 72; RESP 19; TEMP 98.5; O2SAT 98
--- NOTE | 2024-09-26 14:36 | DVHPN2 ---
Reviewed: Care Plan Cardiovascular: Chest Pain Objective Vitals Vital Signs Date Time Temp Pulse Resp B/P (MAP) Pulse Ox O2 Delivery O2 Flow Rate FiO2 09/26/24 09:35 129/57 09/26/24 09:00 98.5 72 19 98 98.5 09/26/24 08:10 Room Air* 0 21 Intake/Output Intake and Output 09/26/24 07:00 Intake Total 1225 ml Balance 1225 ml Intake Oral 1225 ml # Voids 5 Medications Current Medications Medications Dose Ordered Sig/Lilian Route Start Time Stop Time Status Last Admin Dose Admin Patient Own Medication 2.5 mg DAILY PO 09/24/24 10:00 UNV Laboratory Results Laboratory Tests 09/25/24 05:21 Urinalysis Test 09/24/24 02:00 Urine Color Colorless (Yellow) Urine Clarity Clear (Clear) Urine pH 6.5 (5.0-9.0) Urine Specific [place] 1.008 (1.001-1.035) Urine Protein Negative (Negative) Urine Ketones Negative (Negative) Urine Blood Negative /uL (Negative) Urine Nitrite Negative (Negative) Urine Bilirubin Negative (Negative) Urine Urobilinogen Normal mg/dL (Negative) Urine Leukocyte Esterase Negative /uL (Negative) Urine RBC None seen /hpf (0 - 4) Urine Microscopic WBC < 1 /HPF (0-5) Urine Squamous Epithelial Cells Few /hpf (<5) Urine Bacteria None seen /hpf (None Seen) Urine Glucose Normal mg/dL (Normal) Date of Service: Sep 25, 2024 Billing Provider: ANYA MOURA DO Common Visit Codes: [id number] INP/OBS CARE(HIGH) ANYA MOURA DO Sep 26, 2024 14:36
--- NOTE | 2024-09-26 14:37 | DVHDS2 ---
Discharge Summary Date of Admission Sep 24, 2024 at 07:14 Date of Discharge: Sep 26, 2024 Labs/Diagnostic Data: Laboratory Results Test 09/26/24 05:48 09/25/24 05:21 09/24/24 07:16 09/24/24 05:27 POC Glucose 118 mg/dl (70-106) White Blood Count 4.7 10^3/uL (4.4-10.8) Red Blood Count 4.26 10^6/uL (4.0-5.20) Hemoglobin 13.2 g/dL (12.2-16.2) Hematocrit 39.0 % (36.0-46.0) Mean Corpuscular Volume 91.6 fL (80.0-100.0) Mean Corpuscular Hemoglobin 31.0 pg (28.0-32.0) Mean Corpuscular Hemoglobin Concent 33.9 g/dL (32.0-36.0) Red Cell Distribution Width 13.0 % (11.8-14.3) Platelet Count 234 10^3/uL (140-450) Mean Platelet Volume 8.0 fL (6.9-10.8) Neutrophils (%) (Auto) 42.5 % (37.0-80.0) Lymphocytes (%) (Auto) 41.6 % (10.0-50.0) Monocytes (%) (Auto) 9.8 % (0.0-12.0) Eosinophils (%) (Auto) 4.9 % (0.0-7.0) Basophils (%) (Auto) 1.2 % (0.0-2.0) Neutrophils # (Auto) 2.0 10 ^3/uL (1.6-8.6) Lymphocytes # (Auto) 2.0 10 ^3/uL (0.4-5.4) Monocytes # (Auto) 0.5 10 ^3/uL (0-1.3) Eosinophils # (Auto) 0.2 10 ^3/uL (0-0.8) Basophils # (Auto) 0.1 10 ^3/uL (0-0.2) Nucleated Red Blood Cells 0.2 % Sodium Level 137 mmol/L (136-145) Potassium Level 4.8 mmol/L (3.5-5.1) Chloride Level 104 mmol/L (98-107) Carbon Dioxide Level 29 mmol/L (20-31) Anion Gap 4 (5-15) Blood Urea Nitrogen 12 mg/dL (9-23) Creatinine 0.68 mg/dL (0.550-1.02) Glomerular Filtration Rate Calc 102 mL/min (>90) BUN/Creatinine Ratio 17.6 (10.0-20.0) Serum Glucose 119 mg/dL (74-106) Calcium Level 9.8 mg/dL (8.7-10.4) Magnesium Level 1.9 mg/dL (1.6-2.6) Triglycerides Level 118 mg/dL (< 150) Cholesterol Level 170 mg/dL (< 200) LDL Cholesterol 116 mg/dL (< 100) HDL Cholesterol 39 mg/dL (40-59) Hemoglobin A1c 7.1 % A1C (<5.7) Thyroid Stimulating Hormone (TSH) 1.60 uIU/mL (0.55-4.78) Free Thyroxine (T4) Calculated 1.17 ng/dL (0.89-1.76) Troponin I High Sensitivity < 3 ng/L (</=34) Test 09/24/24 02:10 09/24/24 02:00 B-Type Natriuretic Peptide 38.26 pg/mL (0-100) Urine Color Colorless (Yellow) Urine Clarity Clear (Clear) Urine pH 6.5 (5.0-9.0) Urine Specific [employer] 1.008 (1.001-1.035) Urine Protein Negative (Negative) Urine Ketones Negative (Negative) Urine Blood Negative /uL (Negative) Urine Nitrite Negative (Negative) Urine Bilirubin Negative (Negative) Urine Urobilinogen Normal mg/dL (Negative) Urine Leukocyte Esterase Negative /uL (Negative) Urine RBC None seen /hpf (0 - 4) Urine Microscopic WBC < 1 /HPF (0-5) Urine Squamous Epithelial Cells Few /hpf (<5) Urine Bacteria None seen /hpf (None Seen) Urine Glucose Normal mg/dL (Normal) Other Laboratory Tests 09/25/24 05:21 Condition at Discharge: Fair Final Diagnosis/Problems List see above Discharge Disposition: AMA Discharge Instruct/Medications Scheduled Glipizide (Glipizide Er), 2.5 MG PO BID, (Reported) Hydrocodone-Acetaminophen (Hydrocodone Bitartrate/AC 5-325 mg), 1 TAB PO QIDPRN Lisinopril (Lisinopril), 2.5 MG PO DAILY, (Reported) Semaglutide (Ozempic), 0.25 MG SC QWEEKLY, (Reported) Scheduled PRN Cefuroxime Axetil (Cefuroxime Axetil), 500 MG PO BID PRN Miscellaneous Medications Rosuvastatin Calcium (Rosuvastatin Calcium), 1 TAB PO, (Reported) Discharge Statement: "Patient was advised to return to the ER or call 911 if any headaches, dizziness, shortness of breath, chest pain, abdominal pain, bleeding, fevers, or worsening of medical condition. Patient was counseled about treatment plan, medications, possible side effects, patientverbalized understanding. All questions were answered to the best of my ability. This discharge took greater then 30 minutes in planning, reviewing documentation, counseling the patient, and discussing with other team members." ASSESSMENT ASSESSMENT Assessment Date of Service: Sep 26, 2024 Billing Provider: ANYA MOURA DO Common Visit Codes: 78770-VHL/OBS DISCH DAY >30min ANYA MOURA DO Sep 26, 2024 14:37
--- NOTE | 2024-09-30 12:27 | ECG ---
[facility] Test Date: 2024-09-24 Test Time: 02:05:24 Pat Name: AME MONCADADepartment: er [facility] Gender: F Chief Service Dispatcher: shell : [id number] Requested By: ADRIAN MISTRY Order Number: [id number] Reading MD: Measurements Intervals [place] Rate: 74 P: 27 NM: 138 QRS: 30 QRSD: 89 T: 28 QT: 384 QTc: 426 Interpretive Statements Sinus rhythm Low voltage, precordial leads Please click the below link to view image of tracing.
== END 2024-09-26 12:47 | disposition left against medical advice (07) | DRG 198 ==
LOC: ER 01:41 → OVERFLOW 07:14 → TELE-WESTW 18:10
PROVIDERS: ADMIT Internal Medicine; ATTEND Internal Medicine
DX: I20.89 Other forms of angina pectoris (principal); E11.9 Type 2 diabetes mellitus without complications; E78.5 Hyperlipidemia, unspecified; I16.0 Hypertensive urgency; Z53.29 Procedure and treatment not carried out because of patient's decision for other reasons; F41.9 Anxiety disorder, unspecified; I10 Essential (primary) hypertension; Z79.899 Other long term (current) drug therapy; Z83.3 Family history of diabetes mellitus
CPT/HCPCS: 36415; 71045; 80048; 80061; 81001; 82962; 83036; 83735; 83880; 84439; 84443; 84484; 85025; 93005; 93306; G0378; J1815